=== PATIENT | female | born 1995 | race Caucasian/White ===

== ENCOUNTER 2024-11-10 10:30 | Outpatient (CLI) | payer OTHER, SELFPAY ==
[2024-11-10 11:40] LABS: Basophils Percent Auto 0.7 % (0.2-1.2); Eosinophils Absolute Auto 0.1 K/mm3 (0-0.3); Eosinophils Percent Auto 2.6 % (0-4.4); Hematocrit 39.5 % (37.0-47.0); Hemoglobin 12.9 g/dL (12.0-15.0); Immature Granulocyte Absolute 0.01 K/mm3 (0.00-0.031); Immature Granulocyte Percent A 0.2 % (0-0.5); Lymphocytes Absolute Auto 1.21 K/mm3 (0.9-3.2); Lymphocytes Percent Auto 26.4 % (18.3-44.2); Mean Corpuscular HGB Conc 32.7 g/dl (32-36); Mean Corpuscular Hemoglobin 28.4 pg (26-34); Mean Platelet Volume 10.6 fl (7.4-10.4); Monocytes Absolute Auto 0.3 K/mm3 (0.1-0.6); Monocytes Percent Auto 7.4 % (2.6-8.5); Neutrophils Absolute Auto 2.9 K/mm3 (1.3-6.7); Neutrophils Percent Auto 62.7 % (45.5-73.1); Platelet Count Result 194 k/mm3 (150-375); Red Blood Count 4.54 M/mm3 (4.2-5.4); Red Cell Distribution Width 12.5 % (11.5-14.5); White Blood Count 4.6 K/mm3 (4.5-10.0)
[2024-11-10 11:47] LABS: Hemoglobin A1C 4.5 % (<5.7)
--- OUTSIDE RECORDS SUMMARY | 2024-11-10 11:50 | XMS_ITS | Clinical Summary ---
Author Organization [address] Address [address] [place] [phone] Care Team Providers Care Principal Web Developer Name Role Phone Annelise Read NP Primary Care Provider [phone] Chel Sales MD Unavailable [phone] Allergies No known active allergies Medications FLUoxetine (PROzac) 40 mg capsule Take 1 capsule (40 mg total) by mouth daily 90 capsule 1 4 Active -pavw fum-folic ac-om3 28 mg iron- 800 mcg combo pack Take by mouth Activ e ibuprofen (ADVIL,MOTRIN) 600 mg tabletIndicati ons:Cramps Take 1 tablet (600 mg total) by mouth every 6 (six) hours as needed for pain 20 tablet 4 Active Additional Information Patient not taking.Reported on 08/27/2024 buPROPion XL (WELLBUTRIN XL) 300 mg 24 hr tablet Take 1 tablet (300 mg total) by mouth daily 30 tablet 9 5 10/20/19 26 Active buPROPion XL (WELLBUTRIN XL) 150 mg 24 hr tablet Take 2 tablets (300 mg total) by mouth daily 60 tablet 11 5 10/20/19 25 Discontin ued(Other ) Active Problems Problem Noted Date Diagnosed Date Term 07/05/2024 Encounter for supervision of normal in second trimester 02/02/2024 Overview (02/17/2024): 02/02/2024-normal cell free DNA testing and carrier screening. 02/17/24-incomplete anatomy scan-spine Group B Streptococcus urinar y tract infection affecting in second trimester 01/08/2024 Overview (01/08/2024): 01/08/24- will need antibiotics in labor Family history of breast cancer 01/06/2024 Overview (01/06/2024): M- 49 Assessment & Plan (01/06/2024 9:49 AM CDT): She will bring her moms genetic results in. Lipid screening 10/12/2023 Cobalamin deficiency 03/12/2023 Assessment & Plan (01/06/2024 5:06 PM CDT): To B12 level Assessment & Plan (10/12/2023 4:57 PM MANAGER QA): History of. Will check labs today Hypothyroidism 03/04/2023 Assessment & Plan (01/06/2024 5:07 PM CDT): to TSH Assessment & Plan (10/12/2023 4:58 PM MANAGER QA): History of. Not currently on medication. Will recheck TSH with labs Mixed anxiety and depressive disorder 09/03/2022 Assessment & Plan (01/06/2024 9:46 AM CDT): We discussed that this antidepressant is not thought to cause defects. Some people recommend stopping in the third trimester as the babies whose moms take it through delivery seem to be more jittery as if the were withdrawaling from it. This is typically managed by swaddling and comforting by the family. The hospital here has seen an increase in the number of babies whose mothers have been on certain antidepressants not want to take the first breaths. Because of that we now have respiratory therapy at all deliveries where antidepressants have been used, just as a precaution. She will continue on the prozac and add back welbutrin prn. She has some 150s at home. Assessment & Plan (10/12/2023 4:59 PM MANAGER QA): Doing well on current medication. 40 mg fluoxetine and 300 mg Wellbutrin. We talked briefly about medications and risks and benefits if she would become . 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 She believes it she wants to stay on medications. We are going to also refer to gynecology for pre conception counseling Elevated liver enzymes 07/03/2022 Assessment & Plan (01/06/2024 10:38 AM CDT): cmp Vitamin D deficiency 07/03/2022 Assessment & Plan (01/06/2024 9:40 AM CDT): Will test her levels, but I suspect she will still need. Encounters Date Type Department Care Team Description 10/19/2024 [facility]phone [facility] [address] [place] [address] [address] [address] Chel Sales MD 09/09/2024 Telephone [facility] [address] [place] [address] [facility] [place] [phone] Chel Sales MD Med Dose Change 08/27/2024 11:30 AM MANAGER QA Office Visit [facility] at [address] [address] Valeria Mcneill NP care and examination (Primary Dx); Vaginal discharge from Last 3 Months Immunizations Immunization Administration Dates Next Due DTP 1996,1996,1996 DTaP 12/01/2000,07/25/1997 Hep A, Ped Unspecified 08/08/2010,02/05/2010 Hep B, Adolescent or Pediatric 1996,1995,1996 HiB 07/25/1997, 7,1996,06/21 IPV 12/01/2000 Influenza, Quadrivalent, Rec ombinant, Egg Free, Preservative Free, Intramuscular 06/22/2022,04/05/2021 Influenza, Quadrivalent, Spl it, Preservative Free, Intramuscular 05/15/2023 MMR 12/01/2000,07/25/1997 Meningococcal C Conjugate 02/05/2010 Meningococcal MCV4P (Menactra) 02/03/2014 Moderna SARS-CoV-2 Monovalen t Vaccination (12+ YRS) 09/15/2020 OPV 1996,1996,1996 RSV, Bivalent, Protein Subun it Rsvpref, Diluent (Abrysvo) 06/06/2024 Tdap 02/05/2010 Varicella 07/12/2014,03/01/2014 Medical History Medical History Date Comments Depression Vitamin B 12 deficiency Anxiety Vitamin D deficiency Family History Medical History Relation Name Comments Diabetes type II Father Hyperlipidemia Father Hypertension Father Bipolar disorder Mother Breast cancer Mother she had geneti c testing. Pt will bring results. Premature Menopause Mother Thyroid disease Mother Cancer Neg Hx no colon or pitch filler cancer cmt 01/06/24 Relation Name Status Comments Father Alive Mother Alive Social History Tobacco Use Types Packs/Day Years Used Date Smoking Tobacco: Never Passive Smoke Exposure: Never Smokeless Tobacco: Never Tobacco Cessation:Counseling Given: No [employer] Answer Date Recorded In the past 12 months has [employer], [employer], or water [employer] threatened to shut off services in your home? No 07/07/2024 Humiliation, Afraid, Rape, and Kick questionnair e Answer Date Recorded Within the last year, have y ou been afraid of your partner or ex-partner? No 07/07/2024 Within the last year, have y ou been humiliated or emotionally abused in other ways by your partner or ex-partner? No Within the last year, have y ou been kicked, hit, slapped, or otherwise physically hurt by your partner or ex-partner? No 07/07/2024 Within the last year, have y ou been raped or forced to have any kind of sexual activity by your partner or ex-partner? No 07/07/2024 Social Connection and Isolat ion Panel [NHANES] Answer Date Recorded In a typical week, how many times do you talk on the phone with family, friends, or neighbors? More than three times a week 07/07/2024 How often do you get togethe r with friends or relatives? Once a week 07/07/2024 How often do you attend chur ch or zoroastrian services? Never 07/07/2024 Do you belong to any clubs o r organizations such as lutheran groups, unions, fraternal or athletic groups, or school groups? Yes 07/07/2024 How often do you attend meet ings of the clubs or organizations you belong to? More than 4 times per year 07/07/2024 Are you , , di vorced, , never , or living with a partner? Living with partner 07/07/2024 AUDIT-C Answer Date Recorded Q1: How often do you have a drink containing alcohol? Never 07/07/2024 Q2: How many drinks containi ng alcohol do you have on a typical day when you are drinking? Patient does not drink Q3: How often do you have si x or more drinks on one occasion? Never 07/07/2024 Overall Financial Resource Strain (CARDIA) Answe r Date Recorded How hard is it for you to pa y for the very basics like food, housing, medical care, and heating? Somewhat hard 07/07/2024 PHQ-2 Answer Date Recorded PHQ-2 Total Score 0 07/07/2024 [facility] of Occupat ional Health - Occupational Stress Questionnaire Answer Date Recorded Do you feel stress - tense, restless, nervous, or anxious, or unable to sleep at night because your mind is troubled all the time - these days? Only a little 07/07/2024 Exercise Vital Sign Answer Date Recorde d On average, how many days pe r week do you engage in moderate to strenuous exercise (like a brisk walk)? 1 day 07/07/2024 On average, how many minutes do you engage in exercise at this level? 40 min 07/07/2024 Hunger Vital Sign Answer Date Recorded Within the past 12 months, y ou worried that your food would run out before you got the money to buy more. Never true 07/07/20 24 Within the past 12 months, t he food you bought just didn't last and you didn't have money to get more. Never true 07/07/2024 PRAPARE - Transportation Answer Date Re corded In the past 12 months, has l ack of transportation kept you from medical appointments or from getting medications? No 06/19 In the past 12 months, has l ack of transportation kept you from meetings, work, or from getting things needed for daily living? No 07/07/2024 [place] Depression Scale Answer Date Recorded [place] Depression Scale Total 8 09/10/2024 The thought of harming myself has occurred to me . Never 09/10/2024 Housing Stability Vital Sign Answer Felix e Recorded In the last 12 months, was t here a time when you were not able to pay the mortgage or rent on time? No 07/07/2024 In the past 12 months, how m any times have you moved where you were living? 0 07/07/2024 At any time in the past 12 m onths, were you homeless or living in a mcc (including now)? No 07/07/2024 Personal Safety Answer Date Recorded Have you ever been in or are you currently in a harmful physical or emotional relationship or is someone making you feel afraid or unsafe? Denies 07/05/2024 Comments No Sex and Gender Information Value Date Recorded Sex Assigned at Not on file Legal Sex Female 11:21 AM MANAGER QA Gender Identity Not on file Sexual Orientation Not on file Obstetrics History Para Term AB IAB SAB Ectopic Multiple Livin g Live Births 1 1 1 0 1 1 Date Outcome GA Total Labor Labor/2nd/3rd Weight Sex Type Anes PTL Sharon A1 A5 Name Clin 2023 Term 40w 0d 4h 35m 1h 07m/3h 23m/0h 05m 3.552 kg (7 lb 13.3 oz) M Vagina l Epidur al N Livin g 7 9 Desmo nd Jayde s Batool song, Sander broderick MD Complications:None Delivery Location:[facility] Last Filed Vital Signs Vital Sign Reading Time Taken Comments Blood Pressure 100/78 08/27/2024 11:40 AM MANAGER QA Pulse 89 07/08/2024 4:00 PM MANAGER QA Temperature 35.9 C (96.7 F) 07/08/2024 4:00 PM MANAGER QA Respiratory Rate 16 07/08/2024 8:05 AM MANAGER QA Oxygen Saturation 97% 07/06/2024 7:47 PM MANAGER QA Inhaled Oxygen Concentration - - Weight 116.1 kg (256 lb) 08/27/2024 11:40 AM MANAGER QA Height 175.3 cm (5' 9 ) 07/01/2024 2:50 PM MANAGER QA Body Mass Index 37.8 07/01/2024 2:50 PM MANAGER QA Plan of Treatment Health Maintenance Due Date Last Done Comments Regular Well Visit/Exam 18-64 2014 DTaP/Tdap/Td Vaccine (7 - Td or Tdap) 02/06/2020 02/05/2010, 12/01/2000, 07/25/1997, Additional history exists Covid-19 Vaccine ( season) 2024 05/11/2022, 07/02/2021, 10/06/2020, Additional history exists Influenza Vaccine (#1) 2024 , 06/22/2022, 04/05/2021 Cervical Cancer Screening 01/05/2025 01/06/2024 Depression Screening 09/10/2025 09/10/2024, 07/07/2024, 07/05/2024, Additional history exists Hepatitis B Screening Completed 1996 , 1996, 1996 Varicella Vaccines Completed 07/12/2014, 03/01/2014 Hepatitis C Screening Completed 04/13/2024, 024 HPV Vaccines Aged Out No longer eligi ble based on patient's age to complete this topic Pneumococcal vaccine <65 Aged Out No longer eligible based on patient's age to complete this topic Procedures Procedure Name Priority Date/Time Associated Diagnosis Comments HEPATITIS C ANTIBODY Routine 04/13/2024 9:47 AM CDT Encounter for supervision of normal first in second trimester 28 weeks gestation of PAP, REFLEX HPV Routine 01/06/2024 10:55 AM CDT Encounter for supervision of normal first in second trimester 14 weeks gestation of from Last 3 Months or Most Recently Relevant to Health Maintenance Results * Hepatitis C antibody Blood (04/13/2024 9:47 AM CDT) Hep C Ab Nonreactive Nonreactive Comment: Interpretive Data Nonreactive: Antibodies to HCV not detected. Does NOT exclude the possibility of recent exposure to HCV. Equivocal: Equivocal for HCV antibodies. Supplemental molecular testing will be automatically performed to determine infection status in accordance with current CDC screening recommendations. Reactive: Positive for HCV antibodies. This may represent current or past HCV infection. Supplemental molecular testing will be automatically performed to determine current infection status in accordance with current CDC screening recommendations. Interpretive data was last revised on 2019. Testing performed by: [facility], [address] [place] [address]., [id number] Blood 04/13/2024 9:47 AM CDT 04/13/2024 2:13 PM CDT us Valeria Mcneill NP LAB MICROBIOLOGY - GENERAL ORDERABLES Final Result LALITHA HUDSON (OMAHA) 1 [facility] Department [place] [address] * Pap, reflex HPV (01/06/2024 10:55 AM CDT) CLINICAL INFORMATION: Addis Rehman Comment: LMP Addis Rehman Comment:09/30/23 Previous Pap Addis Rehman Comment:NONE GIVEN Prev. Bx Addis Rehman Comment:NONE GIVEN SOURCE: Addis Rehman Comment:Cervix, Endocervix Pap, specimen adequacy Addis Rehman Comment: Satisfactory for evaluation. Endocervical/transformation zone component present. HPV interp Addis Rehman Comment: Cytology Results: Negative for intraepithelial lesion or malignancy. COMMENTS Addis Rehman Comment: This Pap test has been evaluated with computer assisted technology. Holiday Detector Operator Jonathan Fuller Comment: JUNGARLENE(ASCP) CT screening location: [place] [address] [address] [address] Comment Addis Rehman Comment: EXPLANATORY NOTE: The Pap is a screening test for cervical cancer. It is not a diagnostic test and is subject to false negative and false positive results. It is most reliable when a satisfactory sample, regularly obtained, is submitted with relevant clinical findings and history, and when the Pap result is evaluated along with historic and current clinical information. Thin prep 01/06/2024 10:5 5 AM CDT 01/07/2024 3:38 AM CDT Chel Sales MD LAB CYTOLOGY ORDERA BLES Final [facility] [address] [place] [address] from Last 3 Months or Most Recently Relevant to Health Maintenance Insurance [facility] Advance Directives For more information, please contact: [phone] * Full Code (Latest Code Status on File) Date Activated Date Inactivated Comments 07/06/2024 7:42 PM 07/08/2024 11:42 PM * Full Code Date Activated Date Inactivated Comments 07/05/2024 6:14 PM 07/06/2024 7:42 PM Full CPR i n case of cardiopulmonary arrest Care Teams Principal Web Developer Relationship Specialty Start Date End Date Annelise Read NP PCP - General Family Medicine 10/02/23 Chel Sales MD [address] [place] [address] [place] [address] Consulting Physician Obstetrics and Gynecology 07/08/24
--- OUTSIDE RECORDS SUMMARY | 2024-11-10 11:50 | XMS_ITS | Referral Summary ---
Author Organization [address] Address [address] [place] [phone] Care Team Providers Care Computer Science Intern Name Role Phone Annelise Read NP Primary Care Provider [phone] Chel Sales MD Unavailable [phone] Encounters Date Type Department Care Team Description 10/19/2024 Telephone [facility] [address] [place] [address] [address], [place] [address] Chel Sales MD 09/09/2024 Telephone [facility] [address] [place] [address] [place] [phone] Chel Sales MD Med Dose Change 08/27/2024 11:30 AM CLINICAL TRIAL DATA MANAGER Office Visit [facility] at [address] [address] Valeria Mcneill NP care and examination (Primary Dx); Vaginal discharge from Last 3 Months Allergies No known active allergies Medications FLUoxetine (PROzac) 40 mg capsule Take 1 capsule (40 mg total) by mouth daily 90 capsule 1 4 Active qeocaq20-qenp fum-folic ac-om3 28 mg iron- 800 mcg [...] level Assessment & Plan (10/12/2023 4:57 PM CLINICAL TRIAL DATA MANAGER): History of. Will check labs today Hypothyroidism 03/04/2023 Assessment & Plan (01/06/2024 5:07 PM CDT): to TSH Assessment & Plan (10/12/2023 4:58 PM CLINICAL TRIAL DATA MANAGER): History of. Not currently on medication. Will [...] home. Assessment & Plan (10/12/2023 4:59 PM CLINICAL TRIAL DATA MANAGER): Doing well on current medication. 40 mg fluoxetine and 300 mg Wellbutrin. We talked briefly about medications and risks and benefits if she would become . 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 Immunizations Immunization Administration Dates Next Due DTP [...] Diluent (Abrysvo) 06/06/2024 Tdap 02/05/2010 Varicella 07/12/2014,03/01/2014 Social History Tobacco Use Types Packs/Day Years Used Date Smoking Tobacco: Never Passive Smoke Exposure: Never Smokeless Tobacco: Never Tobacco Cessation:Counseling Given: No [facility] [employer] Answer Date Recorded In the past 12 months has e [employer], [employer], or water [id number] threatened to shut off services in your [...] often do you attend chur ch or worship services? Never 07/07/2024 Do you belong to any clubs o r organizations such as anabaptism groups, unions, fraternal or athletic groups, or [...] Date Recorded PHQ-2 Total Score 0 07/07/2024 [facility] of Occupat ional Health - Occupational Stress [...] money to buy more. Never true 07/07/20 Within the past 12 months, t he [...] things needed for daily living? No 07/07/2024 [place] Depression Scale Answer Date Recorded [place] Depression Scale Total 8 09/10/2024 The thought [...] any time in the past 12 m [facility], were you homeless or living in a [facility] (including now)? No 07/07/2024 Personal Safety Answer Date Recorded Have you ever been in or are you currently in a harmful physical or emotional relationship or is someone making you feel afraid or unsafe? Denies 07/05/2024 Comments No Sex and Gender Information Value Date Recorded Sex Assigned at Not on file Legal Sex Female 11:21 AM CLINICAL TRIAL DATA MANAGER Gender Identity Not on file Sexual Orientation Not on file Last Filed Vital Signs Vital Sign Reading Time Taken Comments Blood Pressure 100/78 08/27/2024 11:40 AM CLINICAL TRIAL DATA MANAGER Pulse 89 07/08/2024 4:00 PM CLINICAL TRIAL DATA MANAGER Temperature 35.9 C (96.7 F) 07/08/2024 4:00 PM CLINICAL TRIAL DATA MANAGER Respiratory Rate 16 07/08/2024 8:05 AM CLINICAL TRIAL DATA MANAGER Oxygen Saturation 97% 07/06/2024 7:47 PM CLINICAL TRIAL DATA MANAGER Inhaled Oxygen Concentration - - Weight 116.1 kg (256 lb) 08/27/2024 11:40 AM CLINICAL TRIAL DATA MANAGER Height 175.3 cm (5' 9 ) 07/01/2024 2:50 PM CLINICAL TRIAL DATA MANAGER Body Mass Index 37.8 07/01/2024 2:50 PM CLINICAL TRIAL DATA MANAGER Plan of Treatment Not on file Procedures Procedure Name Priority Date/Time Associated Diagnosis [...] last revised on 2019. Testing performed by: [facility], [address] [place] [address]., [id number] Blood 04/13/2024 9:47 AM CDT 04/13/2024 2:13 PM CDT us Valeria Mcneill NP LAB MICROBIOLOGY - GENERAL ORDERABLES Final Result LALITHA HUDSON (CRAPO) 1 [facility] [place] [address] * Pap, reflex HPV (01/06/2024 [...] has been evaluated with computer assisted technology. Valet Attendant [facility] st Felix Rehman Comment: JUNG, CT(ASCP) CT screening location: [place] [address] [address] [address] Comment Addis Rehman Comment: EXPLANATORY NOTE: The [...] MD LAB CYTOLOGY ORDERA BLES Final Result [facility] [address] [place] [address] from Last 3 Months or Most Recently Relevant to Health Maintenance Insurance [facility] Advance Directives For more information, please contact: [phone] * Full Code (Latest Code Status on File) Date Activated Date Inactivated Comments 07/06/2024 7:42 PM 07/08/2024 11:42 PM * Full Code Date Activated Date Inactivated Comments 07/05/2024 6:14 PM 07/06/2024 7:42 PM Full CPR i n case of cardiopulmonary arrest Care Teams Computer Science Intern Relationship Specialty Start Date End Date Annelise Read NP PCP - General Family Medicine 10/02/23 Chel Sales MD [address] [place] [address] [place] [address] Consulting Physician Obstetrics and Gynecology 07/08/24
[2024-11-10 11:53] LABS: Alanine Aminotransferase 23 U/L (6-35); Albumin Level 4.5 g/dL (3.5-5.1); Alkaline Phosphatase 73 U/L (38-126); Anion Gap 8 mmol/L (4-12); Aspartate Amino Transferase 21 U/L (14-36); Bilirubin,Total 0.9 mg/dL (0.2-1.3); Blood Urea Nitrogen 12 mg/dL (7-17); Carbon Dioxide 26 mmol/L (22-30); Chloride 106 mmol/L (98-107); Cholesterol 134 mg/dL (0-200); Estimated Glomerular Filt Rate > 60; Glucose 85 mg/dL (65-110); HDL Direct 46 mg/dL; Potassium 4.3 mmol/L (3.4-5.0); Sodium 140 mmol/L (137-145); Triglycerides 70 mg/dL (<150)
[2024-11-10 12:04] LABS: LDL Cholesterol Direct 57 mg/dL
[2024-11-10 12:06] LABS: Iron 58 ug/dL (37-170)
[2024-11-10 12:15] LABS: Percent Iron Saturation 18 % (20-50)
[2024-11-10 12:20] LABS: Thyroid Stimulating Hormone 0.351 uIU/mL (0.465-4.680)
[2024-11-10 12:56] LABS: Vitamin D 25 Hydroxy 28.4 ng/mL
[2024-11-12 08:48] LABS: Thyroid Peroxidase Antibodies <1 IU/mL (<9)
== END 2024-11-10 10:31 | disposition home or self-care (01) ==
LOC: ANHLAB 10:31
PROVIDERS: PCP Nurse Practitioner Family; Visit Provider Nurse Practitioner Family
DX: F41.9 Anxiety disorder, unspecified (principal); F32.A Depression, unspecified; E55.9 Vitamin D deficiency, unspecified; D64.9 Anemia, unspecified
CPT/HCPCS: 36415; 80053; 80061; 82306; 83036; 83540; 83550; 84443; 85025; 86376